=== PATIENT | male | born 1995 ===

== ENCOUNTER 2018-03-31 17:45 | Emergency (ER) | payer OTHER ==
[2018-03-31 17:53] VITALS: BP 152/87; PULSE 100; RESP 20; TEMP 98.8; O2SAT 100
--- NOTE | 2018-03-31 18:15 | C.PDOC ---
History Of Present Illness <ClarkerizwanSamra - Last Filed: 03/31/18 18:14> <Pedro Pablo Phillip - Last Filed: 03/31/18 18:57> Pt c/o swelling to head of penis and inability to put foreskin forward over head of penis. (Pedro Pablo Phillip) <ClarkerizwanSamra - Last Filed: 03/31/18 18:14> History Per: Patient Onset/Duration Of Symptoms: Days (3) Current Symptoms Are (Timing): Still Present Severity: Moderate Alleviating Factors: None Additional History Per: Prior Records <Pedro Pablo Phillip - Last Filed: 03/31/18 18:57> Time Seen by Provider: 03/31/18 18:00 Chief Complaint (Nursing): Male Genitourinary Past Medical History - Social History Hx Alcohol Use: Yes Hx Substance Use: No - Immunization History Hx Tetanus Toxoid Vaccination: No Hx Influenza Vaccination: Yes Hx Pneumococcal Vaccination: No <Samra Pike - Last Filed: 03/31/18 18:14> Reviewed: Historical Data, Nursing Documentation, Vital Signs - Medical History PMH: No Chronic Diseases Surgical History: No Surg Hx Family History: States: Unknown Family Hx - Social History Hx Tobacco Use: No Hx Alcohol Use: No Hx Substance Use: No <Pedro Pablo Phillip - Last Filed: 03/31/18 18:57> Vital Signs: Last Vital Signs Temp 98.8 F 03/31/18 17:51 Pulse 100 H 03/31/18 17:51 Resp 20 03/31/18 17:51 BP 152/87 H 03/31/18 17:51 Pulse Ox 100 03/31/18 18:15 Review Of Systems Except As Marked, All Systems Reviewed And Found Negative. Constitutional: Negative for: Fever, Weakness Cardiovascular: Negative for: Chest Pain Respiratory: Negative for: Shortness of Breath Gastrointestinal: Negative for: Vomiting, Abdominal Pain Genitourinary: Positive for: Penile Pain. Negative for: Dysuria, Penile Discharge, Scrotal Pain, Rash Musculoskeletal: Negative for: Neck Pain, Back Pain Skin: Negative for: Rash Neurological: Negative for: Weakness, Numbness <Pedro Pablo Phillip - Last Filed: 03/31/18 18:57> Physical Exam - Physical Exam Appears: Non-toxic, No Acute Distress Skin: Normal Color, Warm, Dry, No Rash Head: Atraumatic, Normacephalic Eye(s): bilateral: Normal Inspection, PERRL, EOMI Neck: Normal ROM, Supple Gastrointestinal/Abdominal: Soft, No Tenderness Back: No CVA Tenderness Male Genital: No Testicular Tenderness, No Testicular Swelling, No Inguinal Tenderness, No Inguinal Swelling, No Scrotal Swelling, No Circumcised, Other ( Paraphimosis present. Prepuce is edematous.) Extremity: Normal ROM, No Deformity Neurological/Psych: Oriented x3, Normal Motor, Normal Sensation <Pedro Pablo Phillip - Last Filed: 03/31/18 18:57> ED Course And Treatment O2 Sat by Pulse Oximetry: 100 <Samra Pike - Last Filed: 03/31/18 18:14> Pulse Ox Interpretation: Normal Progress Note: Paraphimosis was successfully reduced manually by me. Reassessment Condition: Improved <Pedro Pablo Phillip - Last Filed: 03/31/18 18:57> Disposition <Samra Pike - Last Filed: 03/31/18 18:14> Counseled Patient/Family Regarding: Diagnosis, Need For Followup - Disposition Disposition Time: 18:51 <Pedro Pablo Phillip - Last Filed: 03/31/18 18:57> - Disposition Referrals: Arcadio España Jr., MD [Staff Provider] - Disposition: HOME/ ROUTINE Condition: IMPROVED Additional Instructions: Follow up with a Urologist for further evaluation and treatment. Return to the ER if you develop pain, swelling, redness, fever, trouble urinating, discharge, worsening of symptoms or if you have any other concerns. Forms: [employer] (Moroccan), General Discharge Instructions - Clinical Impression Clinical Impression: Paraphimosis
== END 2018-03-31 19:03 | disposition home or self-care (01) ==
LOC: C.ER 17:45
DX: N47.2 Paraphimosis (principal)

== ENCOUNTER 2018-11-24 17:58 | Emergency (ER) | payer SELFPAY ==
[2018-11-24 18:03] VITALS: RESP 18
[2018-11-24] MEDS ORDERED: Lidocaine 2% Jelly (Uro-Jet) TOP ONE (18:20)
[2018-11-24] MEDS ORDERED: Dextrose 50% SYRINGE Inj (50 ml) IVP STA (18:20)
--- NOTE | 2018-11-24 18:22 | C.PDOC ---
History Of Present Illness 23 year old male presents to the emergency department with complaints of paraphimosis since last night. Patient reports a similar episode in August of 2018. Patient states that he never followed up with a urologist. Patient states that he tried ice therapy and self-reduction but reports no improvement of symptoms. Patient states that he is able to urinate without difficulty, and he denies any other symptoms. RECUR PARAPHIMOSIS SINCE LAST NIGHT. SIM EPISODE 08/2018 PS NEVER FU W . PS TRIED ICE AND SELF REDUCTION BUT NO IMPROVE. URINATION WO DIFF. 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 +EDEMA GLANS PENILE, PARAPHIMOSIS. NO DC, LESIONS MDM UNABLE TO REDUCE @ PRESENT TIME. WILL ATTEMPT OSMOTIC TOPICAL SOLUTION, REASSESS Time Seen by Provider: 11/24/18 18:14 Chief Complaint (Nursing): Male Genitourinary History Per: Patient History/Exam Limitations: no limitations Onset/Duration Of Symptoms: Days (1) Current Symptoms Are (Timing): Still Present Quality Of Discomfort: "Pain" Associated Symptoms: denies: Urinary Symptoms Past Medical History Reviewed: Historical Data, Nursing Documentation, Vital Signs Vital Signs: Last Vital Signs Temp 98 F 11/24/18 18:00 Pulse 84 11/24/18 18:00 Resp 18 11/24/18 18:00 BP 118/76 11/24/18 18:00 Pulse Ox 97 11/24/18 18:00 - Medical History PMH: No Chronic Diseases Surgical History: No Surg Hx Family History: States: No Known Family Hx - Social History Hx Tobacco Use: No Hx Alcohol Use: Yes Hx Substance Use: No - Immunization History Hx Tetanus Toxoid Vaccination: No Hx Influenza Vaccination: Yes Hx Pneumococcal Vaccination: No Review Of Systems Except As Marked, All Systems Reviewed And Found Negative. Constitutional: Negative for: Fever, Chills Gastrointestinal: Negative for: Nausea, Vomiting Genitourinary: Positive for: Penile Pain. 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 Positive edema to the glans of the penis, paraphimosis. No discharge or lesions. +CAP REFILL GLANS) Extremity: Normal ROM Neurological/Psych: Oriented x3, Normal Speech, Normal Cognition ED Course And Treatment O2 Sat by Pulse Oximetry: 97 (RA) Pulse Ox Interpretation: Normal Progress Note: Plan: Dextrose 50ml INJ. Xylocaine 2% TOP Progress - Re-Evaluation Re-evaluation Note: 11/24/18 20:20 sp glucose/TOPICAL LIDOCAINE SOLUTION TO GLANS X 1 HR. UNABLE TO REDUCE. SP COMPRESSION DRESSING X 5 MINS, ABLE TO REDUCE GLANS BUT DOES NOT STAY WITHIN [place]. D/W DR Mara MAC DIRECTOR OF CATERING AWARE OF ER FINDINGS, OFFICE 0900. - Data Reviewed Data Reviewed: Old records Medical Decision Making Medical Decision Making: UNABLE TO REDUCE @ PRESENT TIME. WILL ATTEMPT OSMOTIC TOPICAL SOLUTION, REASSESS Disposition Counseled Patient/Family Regarding: Diagnosis, Need For Followup - Disposition Referrals: Christine Mac MD [Staff Provider] - Disposition: HOME/ ROUTINE Disposition Time: 20:25 Condition: GOOD Additional Instructions: FOLLOW UP WITH UROLOGIST DR MAC 11/25/18 @ 9 AM WITHOUT FAIL. Paraphimosis: Care Instructions Your Care Instructions Paraphimosis (say "[id number]-[id number]-moi") is a problem with the skin on your penis. The skin that folds over the penis (foreskin) gets tight and sticks behind the head of the penis. The skin can't return to its normal place over the head of the penis. This only occurs in men who still have all or part of their foreskin. This problem needs to be treated right away. If it's not treated, the penis will swell. Then blood flow to the head of the penis may be cut off. This can damage the penis. And it can be very painful. Your doctor probably reduced the swelling and put the foreskin in its normal place. Your doctor may have done surgery if the problem was severe. Your doctor may suggest that you be circumcised. This can prevent the problem from happening again. Follow-up care is a sheppard part of your treatment and safety. Be sure to make and go to all appointments, and call your doctor or nurse call line if you are having problems. It's also a good idea to know your test results and keep a list of the medicines you take. How can you care for yourself at home? Take pain medicines exactly as directed. If the doctor gave you a prescription medicine for pain, take it as prescribed. If you are not taking a prescription pain medicine, ask your doctor if you can take an [id number] medicine. If the doctor used surgery, follow the directions you are given. Prevention Clean your penis every day. Pull the foreskin back. Then carefully wash the whole area with warm water. After washing, return the foreskin to its normal position. Always return the foreskin to its normal position if it has been pulled back. This may happen during sex. Or you may pull it back before sex, before you urinate, or when you clean your penis. Be sure the foreskin is in its normal position after any doctor examination or procedure. For example, the foreskin may be pulled back to use a catheter. If the problem happened after using jewellery in a piercing, do not use the jewellery again. If the problem happened during sex, do not have sex for a few days. Forms: General Discharge Instructions - Clinical Impression Clinical Impression: Paraphimosis - Scribe Statement The provider has reviewed the documentation as recorded by the Scribe (Ravinder Hdez) Provider Attestation: All medical record entries made by the Scribe were at my direction and personally dictated by me. I have reviewed the chart and agree that the record accurately reflects my personal performance of the history, physical exam, medical decision making, and the department course for this patient. I have also personally directed, reviewed, and agree with the discharge instructions and disposition.
[2018-11-24] MEDS ORDERED: Lidocaine 2% Jelly (Uro-Jet) ONE (18:28)
[2018-11-24] MEDS ORDERED: Dextrose 50% SYRINGE Inj (50 ml) ONE (18:28)
[2018-11-24 20:46] VITALS: BP 124/79; PULSE 91; TEMP 97.8; O2SAT 98
== END 2018-11-24 20:46 | disposition home or self-care (01) ==
LOC: C.ER 17:58
DX: N47.2 Paraphimosis (principal)